=== PATIENT | female | born 1990 | race African-American/Black ===

== ENCOUNTER 2022-02-03 05:21 | Inpatient (IN) | payer OTHER ==
[2022-02-03] VITALS (29 sets, daily range): BP systolic 93–185; BP diastolic 52–88
[~2022-02-03] VITALS: Ht 160 cm; Wt 64.3 kg
[2022-02-03] MEDS ORDERED: D5 LR IV SOLUTION 1,000 ML IV SCH (06:15)
[2022-02-03] MEDS ORDERED: LIDOCAINE/EPI 2% 1:200,00 (XYLOCAINE) 10 ML VIAL INJ PRN (06:15)
[2022-02-03] MEDS ORDERED: MINERAL OIL 30 ML TOP PRN (06:15)
[2022-02-03] MEDS ORDERED: CATHETER FLUSH 10 ML SYR IV PRN (06:15)
--- NOTE | 2022-02-03 06:28 | History & Physical-OB ---
OB - Chief Complaint & HPI Date/Time Date of Admission: Date of Admission: Feb 03, 2022 at 06:03 Date seen by a Provider: Feb 03, 2022 Time Seen by a Provider: 06:30 Chief Complaint/History OB-Reason for Admission/Chief: Induction of Labor Hx : 3 Hx Para: 2 Expected Date of Delivery: Jan 30, 2022 Gestational Age in Weeks: 40 Gestational Age in Days: 4 Indication for induction: post dates Admission Nurse Assessment Rev: Yes History of Labs GBS negative Allergies and Home Medications Allergies Coded Allergies: No Known Drug Allergies (Unverified , 02/03/22) Patient Home Medication List Home Medication List Reviewed: Yes OB - History Hx of Present Care: Yes Ultrasounds: Normal mid trimester US Obstetrical Complications: None Medical Complications: None Patient Past Medical History no chronic medical problems OB - Admission Exam Physical Exam HEENT: Moist Membranes Heart: Rhythm Normal Lungs: Clear Abdomen: Gravid Cervical Dilatation: 2cm Effacement: 75% Station: -3 Membranes: Intact Heart Rate: 140's Accelerations: Accelerations Present Contractions on Admission: >10 Minutes Apart Intensity: Mild Barba Scoring Tool (Modified) Dilation (cm): 1-2cm (1) Effacement (%): 51-79% (2) Descent/Station: -3 (0) Cervix Consistency: Medium(1) Cervix Position: Middle/Mid-Position (1) Add 1 point for: Each previous vaginal delivery (1) Barba Score: 7 OB - Assessment/Plan/Diagnosis Assessment Assessment: induction of labor Admission Dx 1. IUP at 40w4d gestation Admission Status: Inpatient Order (span 2 midnights) Reason for Inpatient Admission: Induction of labor Plan Plan: Induction Induction Method: AROM Other Plan -pitocin if necessary SHAKIRA HOLDER MD Feb 03, 2022 06:28
[2022-02-03 06:39] LABS: BASOPHILS # (AUTO) 0.1 10^3/uL (0.0-0.1); BASOPHILS % (AUTO) 1 % (0-10); EOSINOPHILS # (AUTO) 0.2 10^3/uL (0.0-0.3); EOSINOPHILS % (AUTO) 2 % (0-10); HEMATOCRIT 42 % (35-52); HEMOGLOBIN 14.2 g/dL (11.5-16.0); LYMPHOCYTES # (AUTO) 1.6 10^3/uL (1.0-4.0); LYMPHOCYTES % (AUTO) 17 % (12-44); MEAN CORPUSCULAR HEMOGLOBIN 29 pg (25-34); MEAN CORPUSCULAR HGB CONC 34 g/dL (32-36); MEAN CORPUSCULAR VOLUME 85 fL (80-99); MONOCYTES # (AUTO) 0.7 10^3/uL (0.0-1.0); MONOCYTES % (AUTO) 8 % (0-12); NEUTROPHILS # (AUTO) 6.3 10^3/uL (1.8-7.8); NEUTROPHILS % (AUTO) 67 % (42-75); PLATELET COUNT 189 10^3/uL (130-400); WHITE BLOOD COUNT 9.5 10^3/uL (4.3-11.0)
[2022-02-03 07:41] LABS: BILIRUBIN,URINE NEGATIVE (NEGATIVE); CLARITY,URINE CLEAR; COLOR,URINE YELLOW; GLUCOSE, URINE (UA) NEGATIVE (NEGATIVE); KETONES,URINE NEGATIVE (NEGATIVE); LEUKOCYTE ESTERASE ,URINE 1+ (NEGATIVE); NITRITE,URINE NEGATIVE (NEGATIVE); PH,URINE 6.5 (5-9); PROTEIN,URINE NEGATIVE (NEGATIVE)
[2022-02-03] MEDS ORDERED: OXYTOCIN PRE-MIX DRIP 500 ML IV ONE (07:56)
[2022-02-03 07:57] LABS: BACTERIA,URINE TRACE /HPF; RBC,URINE RARE /HPF
[2022-02-03] MEDS ORDERED: OXYTOCIN PRE-MIX DRIP 500 ML IV SCH ×2 (08:00→12:15)
[2022-02-03] MEDS ORDERED: MEPIVACAINE (CARBOCAINE) 2% 50 ML VIAL ONE (10:30)
--- NOTE | 2022-02-03 12:01 | OB Labor & Delivery Record ---
L&D History Date of Service Date of Service: Feb 03, 2022 History Expected Date of Delivery: Jan 30, 2022 Gestational Age in Weeks: 40 Hx : 3 Hx Para: 3 Complications Events: Routine care Operative Indications (Cesarea: N/A-Vaginal Delivery Intrapartal Events: Extnded Bradycardia (at delivery) L&D Stage1 Stage One Onset of Labor - Date: Feb 03, 2022 Onset of Labor - Time: 06:39 Monitors and Tracing Monitor Mode: Internal Heart Rate: 130 Monitor Accelerations: Uniform Monitor Decelerations: Variable Station: 0 Halfway Variability: Average (6-10) Short Term Variability: Present Presentation: Vertex Vital Signs VS - Last 72 Hours, by Label 02/03/22 02/03/22 02/03/22 02/03/22 06:35 06:37 07:10 07:25 Temp 36.6 36.6 36.8 Pulse 89 89 82 77 Resp 18 18 18 18 B/P (MAP) 110/64 (79) 103/63 (76) 108/62 (77) Pulse Ox 98 98 O2 Delivery Room Air Room Air 02/03/22 02/03/22 02/03/22 02/03/22 07:45 08:00 08:15 08:30 Pulse 78 79 81 85 Resp 18 18 18 18 B/P (MAP) 105/63 (77) 106/57 (73) 108/68 (81) 152/60 (90) 02/03/22 02/03/22 02/03/22 02/03/22 08:45 09:00 09:15 09:30 Pulse 78 77 74 72 Resp 18 18 18 18 B/P (MAP) 110/64 (79) 113/67 (82) 100/62 (75) 103/55 (71) 02/03/22 02/03/22 02/03/22 09:45 10:00 10:15 Pulse 86 78 74 Resp 18 18 18 B/P (MAP) 103/57 (72) 103/57 (72) 112/66 (81) Signs of Distress by FHT Signs of Distress no Rupture of Membranes Spontaneous Ruture of Membrane: No Amniotic Membrane Rupture Time: 0639 Amniotic Membrane Fluid Desc.: Clear L&D Stage2 Stage Two Stage II Date: Feb 03, 2022 Stage II Time: 11:49 Monitors and Tracing Monitor Mode: Internal Heart Rate: 130 Monitor Accelerations: Uniform Monitor Decelerations: Variable Halfway Variability: Average (6-10) Position: Left Occiput Anterior Presentation: Vertex Signs of Distress by FHT Signs of Distress no Cord Descript/Complications Cord Vessel Description: 3 Vessels Delivery Type Delivery Method: Spontaneous Vaginal Anterior Shoulder: Left Episiotomy/Perineal Laceration Laceraction(s)/Extensions: No Condition of Delivery 1 minute Comment: 8 5 minute Comment: 9 Condition of Infant Condition of : Living Exam: No Observed Abnormalities Resuscitation Resuscitation: N/A - Spontaneous Resp L&D Stage3 Stage Three Stage III Date: Feb 03, 2022 Stage III Time: 11:54 Pictocin Pitocin Administration mu/min: 8 Pitocin ml/hr: 8 Pitocin Administration Comment: pitocin increased Placenta Delivery Placenta Delivery: Spontaneous Delivery Summary Summary Estimated blood loss (mL): 200 Condition of Delivery Examined: Cervix Examined Post Hemorrhage: No Intervention Required none SHAKIRA HOLDER MD Feb 03, 2022 12:01
[2022-02-03] MEDS ORDERED: NALOXONE 0.4 MG/ML 1 ML (NARCAN) VIAL IV PRN (12:15)
[2022-02-03] MEDS ORDERED: MEASLES,MUMPS,RUBELLA 1 EA INJ SQ ONE (12:15)
[2022-02-03] MEDS ORDERED: BENZOCAINE/MENTHOL (DERMOPLAST) 56 ML CAN TP PRN (12:15)
[2022-02-03] MEDS ORDERED: WITCH HAZEL(TUCKS) 40 EA JAR TOP PRN (12:15)
[2022-02-03] MEDS ORDERED: TETANUS,DIPTH,PERTUSS P/F (BOOSTRIX) 0.5 ML VIAL IM ONE (12:15)
[2022-02-03] MEDS ORDERED: CATHETER FLUSH 10 ML SYR IV SCH (14:00)
[2022-02-03] MEDS: ACETAMINOPHEN 500 MG TAB (TYLENOL) PO SCH (18:39)
[2022-02-03] MEDS: IBUPROFEN 600 MG (MOTRIN) TAB PO SCH (18:39)
[2022-02-03] MEDS: DOCUSATE SODIUM 100 MG (COLACE) CAP PO SCH (20:42)
[2022-02-04 01:05] VITALS: BP 108/57
[2022-02-04] MEDS: IBUPROFEN 600 MG (MOTRIN) TAB PO SCH ×2 (01:05→08:43)
[2022-02-04] MEDS: ACETAMINOPHEN 500 MG TAB (TYLENOL) PO SCH ×3 (01:05→14:20)
[2022-02-04 04:05] VITALS: BP 105/55
[2022-02-04 06:05] LABS: BASOPHILS # (AUTO) 0.1 10^3/uL (0.0-0.1); BASOPHILS % (AUTO) 0 % (0-10); EOSINOPHILS # (AUTO) 0.2 10^3/uL (0.0-0.3); EOSINOPHILS % (AUTO) 2 % (0-10); HEMATOCRIT 39 % (35-52); HEMOGLOBIN 13.2 g/dL (11.5-16.0); LYMPHOCYTES # (AUTO) 1.9 10^3/uL (1.0-4.0); LYMPHOCYTES % (AUTO) 15 % (12-44); MEAN CORPUSCULAR HEMOGLOBIN 29 pg (25-34); MEAN CORPUSCULAR HGB CONC 34 g/dL (32-36); MEAN CORPUSCULAR VOLUME 87 fL (80-99); MEAN PLATELET VOLUME 11.4 fL (9.0-12.2); MONOCYTES # (AUTO) 0.9 10^3/uL (0.0-1.0); MONOCYTES % (AUTO) 8 % (0-12); NEUTROPHILS # (AUTO) 8.8 10^3/uL (1.8-7.8); NEUTROPHILS % (AUTO) 72 % (42-75); PLATELET COUNT 197 10^3/uL (130-400); WHITE BLOOD COUNT 12.3 10^3/uL (4.3-11.0)
--- NOTE | 2022-02-04 07:51 | Discharge Summary ---
Diagnosis/Chief Complaint Date of Admission Feb 03, 2022 at 06:03 Date of Discharge February 04, 2022 Admission Diagnosis Admission Diagnosis 1. Intrauterine at 40 weeks 4 days gestation Discharge Diagnosis 1. Intrauterine at 40 weeks 4 days gestation Chief Complaint/HPI Chief Complaint/HPI 31-year-old 3 now term 3 who initially presented to labor and delivery during the morning of February 03 for induction of labor. She was noted to be at 40 weeks 4 days gestation. She had occasional contraction. Her EDC was noted to be January 30, 2022. Her GBS status performed through [facility] at 36 weeks was negative. Discharge Summary-OBS Procedures 1. Spontaneous vaginal delivery Discharge Physical Examination Allergies: Coded Allergies: No Known Drug Allergies (Unverified , 02/03/22) Vitals & I&Os Intake and Output 02/04/22 00:00 Intake Total 1725 ml Balance 1725 ml Vital Sign - Last 12Hours Date Time Temp Pulse Resp B/P (MAP) Pulse Ox O2 Delivery O2 Flow Rate FiO2 02/04/22 04:05 36.1 73 18 105/55 (72) 97 Room Air General Appearance: No Acute Distress Respiratory: Clear to Auscultation Cardiovascular: Regular Rate Abdominal: Soft (with uterus firm) Hospital Course patient was admitted during the morning of February 03, 2022 for induction of labor. She underwent amniotomy with placement of scalp electrode. At that time fluid was noted to be clear. She eventually required low-dose Pitocin augmentation. She had occasional variable decels during the course of labor. Ultimately she went on to completion and delivered a term viable female. She had not received any epidural or pain medications during labor. following delivery she underwent routine care orders. Her hemoglobin in the morning of February 04 was 13.2 compared to admission of 14.2. She had tolerated regular diet. She was ambulatory and had no complaints of shortness of breath or leg pain. She was ready for dismissal during the afternoon of February 04, 2022. Labs Laboratory Tests 02/04/22 05:50: White Blood Count 12.3H, Red Blood Count 4.49, Hemoglobin 13.2, Hematocrit 39, Mean Corpuscular Volume 87, Mean Corpuscular Hemoglobin 29, Mean Corpuscular Hemoglobin Concent 34, Red Cell Distribution Width 13.2, Platelet Count 197, Mean Platelet Volume 11.4, Immature Granulocyte % (Auto) 4, Neutrophils (%) (Auto) 72, Lymphocytes (%) (Auto) 15, Monocytes (%) (Auto) 8, Eosinophils (%) (Auto) 2, Basophils (%) (Auto) 0, Neutrophils # (Auto) 8.8H, Lymphocytes # (Auto) 1.9, Monocytes # (Auto) 0.9, Eosinophils # (Auto) 0.2, Basophils # (Auto) 0.1, Immature Granulocyte # (Auto) 0.4H Discharge Instructions to patient/family Please see electronic discharge instructions given to patient. Discharge Medications Reviewed and agree with Discharge Medication list on patient's Discharge Instruction sheet SHAKIRA HOLDER MD Feb 04, 2022 07:51
--- NOTE | 2022-02-04 07:54 | Discharge Inst-Women's Service ---
Discharge Inst-Women's Serv Depart Medication/Instructions New, Converted or Re-Newed RX: Other Instructions May take [id number] ibuprofen 200 mg and may take 2 or 3 every 6 hours if needed for cramps. Problems Reviewed?: Yes Consults/Follow Up Additional Follow Up: Yes (Dr Holder at [facility] in 6 weeks) Activity Driving Instructions: No Driving for 1 Week Nothing Inside Vagina: No Warm [place] (for 6 weeks) Diet Discharge Diet: Regular Diet Return to The Hospital For: as below Symptoms to Report to : Bleeding Excessive, Fever Over 101 Degrees F, Vaginal Discharge Foul For Any Problems or Questions: Contact Your Physician SHAKIRA HOLDER MD Feb 04, 2022 07:54
[2022-02-04] MEDS: DOCUSATE SODIUM 100 MG (COLACE) CAP PO SCH (08:43)
[2022-02-04 08:45] VITALS: BP 99/59
[2022-02-04 12:30] VITALS: BP 98/56
[2022-02-04] MEDS ORDERED: IBUPROFEN 600 MG (MOTRIN) TAB PO SCH (14:00)
[2022-02-04 15:05] VITALS: BP 98/56
== END 2022-02-04 15:05 | disposition home or self-care (01) | DRG 807 ==
LOC: LDRP 06:03
PROVIDERS: ADMIT Family Medicine; ATTEND Family Medicine
PROC: 10E0XZZ Delivery of Products of Conception, External Approach (ICD-10-PCS; principal; 2022-02-03)
PROC: 10907ZC Drainage of Amniotic Fluid, Therapeutic from Products of Conception, Via Natural or Artificial Opening (ICD-10-PCS; 2022-02-03)
DX: O48.0 Post-term pregnancy (principal); Z37.0 Single live birth; Z3A.40 40 weeks gestation of pregnancy; O76 Abnormality in fetal heart rate and rhythm complicating labor and delivery
CPT/HCPCS: 36415; 81000; 85025; 86850; 86900; 86901

== ENCOUNTER 2023-02-11 12:27 | Inpatient (IN) | payer SELFPAY ==
[~2023-02-11] VITALS: Ht 154.9 cm; Wt 72.8 kg
--- NOTE | 2023-02-11 14:28 | Diagnostic Imaging Report ---
INDICATION: monitoring, evaluate growth. TECHNIQUE: Multiple real-time grayscale images were obtained over the gravid uterus. COMPARISON: None FINDINGS: There is a single live fetus in a cephalic presentation. heart rate was recorded at 139 bpm. Placenta is posterior. No previa is detected. Amniotic fluid index is 12.2 cm. kidneys, bladder and stomach are unremarkable. brain is unremarkable. There is a four-chamber heart. There is a three-vessel cord. Cord insertion is somewhat limited in evaluation due to age. spine is unremarkable. Biometrical measurements are as follows: Biparietal 9.06 cm, age 36 weeks 6 days. Head circumference 34.12 cm, age 39 weeks 3 days. Abdominal circumference 34.50 cm, age 38 weeks 3 days. Femur length 7.43 cm, age 38 weeks 1 days. Sonographic estimate age: 38 weeks 2 days. Sonographic estimated date of delivery: 02/23/2023. Estimated Weight: 3426 gm (+/- 500 gm). LMP percentile: 62%. heart rate: 139 beats per minute. number: 1 of 1. IMPRESSION: Single live IUP measuring 38 weeks 2 days gestational age with estimated date of confinement sonographically of 02/23/2023. Dictated by: Dictated on workstation # [id number]
[2023-02-11] MEDS ORDERED: LACTATED RINGERS 1,000 ML IV ONE (15:24)
[2023-02-11] MEDS ORDERED: AMPICILLIN FOR IV USE 2,000 MG in NS (IVPB) 50 ML IV SCH (17:09)
[2023-02-11] MEDS ORDERED: MINERAL OIL 30 ML UDC TOP PRN (17:15)
[2023-02-11] MEDS ORDERED: WATER (STERILE) FOR INJECTION 20 ML ONE (17:20)
[2023-02-11] MEDS ORDERED: D5 LR IV SOLUTION 1,000 ML IV ONE (17:20)
[2023-02-11] MEDS ORDERED: AMPICILLIN 2,000 MG/14.8 ML (IV USE) ONE (17:20)
[2023-02-11] MEDS: D5 LR IV SOLUTION 1,000 ML IV SCH (17:24)
[2023-02-11] MEDS ORDERED: LIDOCAINE 1% INJ 10 ML VIAL INJ PRN (17:45)
[2023-02-11 17:58] LABS: BASOPHILS % (AUTO) 0 % (0-10); EOSINOPHILS # (AUTO) 0.1 10^3/uL (0.0-0.3); EOSINOPHILS % (AUTO) 1 % (0-10); HEMATOCRIT 38 % (35-52); HEMOGLOBIN 13.1 g/dL (11.5-16.0); LYMPHOCYTES # (AUTO) 1.5 10^3/uL (1.0-4.0); LYMPHOCYTES % (AUTO) 17 % (12-44); MEAN CORPUSCULAR HEMOGLOBIN 27 pg (25-34); MEAN CORPUSCULAR HGB CONC 35 g/dL (32-36); MEAN CORPUSCULAR VOLUME 77 fL (80-99); MONOCYTES # (AUTO) 0.6 10^3/uL (0.0-1.0); MONOCYTES % (AUTO) 6 % (0-12); NEUTROPHILS # (AUTO) 6.7 10^3/uL (1.8-7.8); NEUTROPHILS % (AUTO) 75 % (42-75); PLATELET COUNT 157 10^3/uL (130-400); WHITE BLOOD COUNT 8.9 10^3/uL (4.3-11.0)
[2023-02-11 18:11] VITALS: BP 112/58
[2023-02-11 18:12] VITALS: BP 112/58
[2023-02-11 20:33] VITALS: BP 120/63
[2023-02-11] MEDS: CATHETER FLUSH 10 ML SYR IV SCH (22:00)
[2023-02-11] MEDS: AMPICILLIN FOR IV USE 1,000 MG in NS (IVPB) 50 ML IV SCH (22:22)
[2023-02-11 23:37] VITALS: BP 109/62
[2023-02-12] VITALS (15 sets, daily range): BP systolic 98–130; BP diastolic 52–79
[2023-02-12] MEDS: AMPICILLIN FOR IV USE 1,000 MG in NS (IVPB) 50 ML IV SCH ×3 (02:08→10:42)
[2023-02-12] MEDS: D5 LR IV SOLUTION 1,000 ML IV SCH ×2 (02:10→10:42)
[2023-02-12] MEDS: CATHETER FLUSH 10 ML SYR IV SCH (05:20)
[2023-02-12] MEDS ORDERED: OXYTOCIN PRE-MIX DRIP 500 ML IV ONE (10:41)
--- NOTE | 2023-02-12 12:57 | Labor Progress Note ---
Labor Progress Note Labor Progress Note Date Seen by Provider: Feb 12, 2023 Time Seen by Provider: 13:35 Subjective: Patient feeling more pressure and having the urge to push. Called to room to check patient Objective: /- Clear bloody fluid on SVE Assessment/Plan: Aniceto Peres is a (30 /Para 4 / 3,Gestational Age (wks)38 here for active labor CEFM/TOCO Continue pitocin augmentation of labor Anesthesia: None GBS Unknown, on ampicillin Minimal care GDM with blood sugar >200 at GTT Anticipate vaginal delivery. Vitals - Labs Vital Signs - I&O Vital Signs Date Time Temp Pulse Resp B/P (MAP) Pulse Ox O2 Delivery O2 Flow Rate FiO2 02/12/23 07:52 36.7 64 18 116/58 (77) Room Air 02/12/23 02:32 36.6 67 18 108/54 (72) Room Air 02/11/23 23:37 37.1 71 18 109/62 (78) Room Air 02/11/23 20:33 36.8 71 18 120/63 (82) Room Air 02/11/23 18:12 36.7 72 18 112/58 95 Room Air 02/11/23 18:11 64 18 112/58 (76) 95 Room Air I & O 02/12/23 07:00 Intake Total 2100 ml Balance 2100 ml Labs Laboratory Tests 02/11/23 15:47: Glucometer 120H 02/11/23 17:45: White Blood Count 8.9, Red Blood Count 4.90, Hemoglobin 13.1, Hematocrit 38, Mean Corpuscular Volume 77L, Mean Corpuscular Hemoglobin 27, Mean Corpuscular Hemoglobin Concent 35, Red Cell Distribution Width 12.8, Platelet Count 157, Mean Platelet Volume 11.0, Immature Granulocyte % (Auto) 1, Neutrophils (%) (Auto) 75, Lymphocytes (%) (Auto) 17, Monocytes (%) (Auto) 6, Eosinophils (%) (Auto) 1, Basophils (%) (Auto) 0, Neutrophils # (Auto) 6.7, Lymphocytes # (Auto) 1.5, Monocytes # (Auto) 0.6, Eosinophils # (Auto) 0.1, Basophils # (Auto) 0.0, Immature Granulocyte # (Auto) 0.1, Syphilis Total Antibody Negative TOM VALENZUELA MD Feb 12, 2023 12:57
--- NOTE | 2023-02-12 14:03 | History & Physical-OB ---
OB - Chief Complaint & HPI Date/Time Date of Admission: Date of Admission: Feb 11, 2023 at 17:07 Date seen by a Provider: Feb 12, 2023 Time Seen by a Provider: 08:30 Chief Complaint/History OB-Reason for Admission/Chief: Onset of Labor Hx : 4 Hx Para: 3 Expected Date of Delivery: Feb 23, 2023 Gestational Age in Weeks: 38 Gestational Age in Days: 2 History of Labs Blood type B+, antibody screen negative HIV, Hep B, RPR NR Rubella equivicable GC/Chl negative Pap - ASCUS, HPV+ 1h GTT 247 GBS unknown Allergies and Home Medications Allergies Coded Allergies: No Known Drug Allergies (Unverified , 02/03/22) Patient Home Medication List Home Medication List Reviewed: Yes No Active Prescriptions or Reported Meds OB - History Hx of Present Care: Yes Ultrasounds: Normal mid trimester US Obstetrical Complications: Other (Limited prental care; abnormal GTT) Medical Complications: None Information Induced Hypertension: No Maternal Gestational Diabetes: Yes (1h GTT 247, limited follow-up) Hemorrhage: No Obstetrical History Hx : 4 Hx Para: 3 Hx Total # of Abortions (Spona: 0 Delivery History Hx Dystocia: No Hx Forceps Assisted Delivery: No Hx Vacuum Extraction Assisted: No Hx Placenta Abnormality: No Hx Distress: No Hx Large For Gestational Age I: No Hx Small for Gestational Age I: No Hx Section: No Hx Vaginal Delivery Post C-Sec: No Hx Blood Disorders: No Adverse Rxn to Tranfusion: No Patient Past Medical History denies Social History/Family History Alcohol Use: Denies Use Recreational Drug Use: No Immunizations Influenza Vaccine Up-to-Date: No; Not Current Rubella: not immune RPR/VDRL: Negative GBS Status: Unknown HBsAG: Negative OB - Admission Exam Physical Exam Vitals: Vital Signs 02/11/23 02/12/23 18:12 07:52 Temp 36.7 Pulse 64 Resp 18 B/P (MAP) 116/58 (77) Pulse Ox 95 O2 Delivery Room Air Heart: Rhythm Normal Lungs: Clear Abdomen: Gravid Cervical Dilatation: 6cm Effacement: 100% Station: -1 Membranes: Ruptured (AROM) Amniotic Fluid: Clear Heart Rate: 140's Accelerations: Accelerations Present Decelerations: No Decelerations Short Term Variability: Present Laborer General Variability: Average (6-25) Contractions on Admission: < 5 Minutes Apart Intensity: Moderate Labs Laboratory Tests Test 02/11/23 15:47 02/11/23 17:45 Range/Units Glucometer 120 H 70-110 MG/DL White Blood Count 8.9 4.3-11.0 10^3/uL Red Blood Count 4.90 3.80-5.11 10^6/uL Hemoglobin 13.1 11.5-16.0 g/dL Hematocrit 38 35-52 % Mean Corpuscular Volume 77 L 80-99 fL Mean Corpuscular Hemoglobin 27 25-34 pg Mean Corpuscular Hemoglobin Concent 35 32-36 g/dL Red Cell Distribution Width 12.8 10.0-14.5 % Platelet Count 157 130-400 10^3/uL Mean Platelet Volume 11.0 9.0-12.2 fL Immature Granulocyte % (Auto) 1 % Neutrophils (%) (Auto) 75 42-75 % Lymphocytes (%) (Auto) 17 12-44 % Monocytes (%) (Auto) 6 0-12 % Eosinophils (%) (Auto) 1 0-10 % Basophils (%) (Auto) 0 0-10 % Neutrophils # (Auto) 6.7 1.8-7.8 10^3/uL Lymphocytes # (Auto) 1.5 1.0-4.0 10^3/uL Monocytes # (Auto) 0.6 0.0-1.0 10^3/uL Eosinophils # (Auto) 0.1 0.0-0.3 10^3/uL Basophils # (Auto) 0.0 0.0-0.1 10^3/uL Immature Granulocyte # (Auto) 0.1 0.0-0.1 10^3/uL Syphilis Total Antibody Negative Negative OB - Assessment/Plan/Diagnosis Assessment Assessment: active labor Admission Dx Active labor at 38wk Limited care Unknown GBS Admission Status: Inpatient Order (span 2 midnights) Reason for Inpatient Admission: labor and delivery Plan Plan: Expectant Management Other Plan augment labor with ROM Unknown GBS, treat with ampicillin TRINO PEPE DO Feb 12, 2023 14:03
--- NOTE | 2023-02-12 14:07 | OB Labor & Delivery Record ---
Vag Delivery Note Vag Delivery Note Date of Delivery: 02/12/23 Preoperative Diagnosis: Aniceto Peres is a (30 /Para 4 / 3,Gestational Age (wks)38with spontaneous labor. Postoperative Diagnosis: Same Surgeon: TRINO PEPE Anesthesia: none Delivery Type: spontaenous vaginal delivery @1352 Findings: Viable male infant, apgars 8/9, weight 6#15 (3135g) Lacerations: none Intact placenta with 3 vessel cord. No shoulder dystocia. Leg cord noted at delivery. Estimated Blood Loss: 75 ml Complications: None Condition: Stable Description of Procedure: The patient is a 32 year old female who presented with contractions and cervical change. She was admitted and informed consent was obtained. Her labor course was remarkable for labor augmentation with ROM at 6cm with clear fluid.. She progressed to complete dilatation and began to push. She was then set up for delivery. The 's head was delivered atraumatically in the LIN position. The shoulders and remainder of the 's body were then delivered without difficulty. Upon delivery, the was vigorous and placed on maternal chest and the mouth and nares were bulb suctioned. After a delay cord was doubly clamped and cut and the infant remained on maternal chest. An intact placenta with 3-vessel cord delivered via [place] and there was found to be minimal bleeding.~ Vigorous fundal massage was performed and the fundus was found to be firm. IV oxytocin was given. Examination of the vagina and perineum revealed no lacerations . Following the repair, sponge, instrument and needle counts were correct. Mom and baby were both in stable condition in the labor suite. Vitals - Labs Vital Signs - I&O Vital Signs Date Time Temp Pulse Resp B/P (MAP) Pulse Ox O2 Delivery O2 Flow Rate FiO2 02/12/23 07:52 36.7 64 18 116/58 (77) Room Air 02/12/23 02:32 36.6 67 18 108/54 (72) Room Air 02/11/23 23:37 37.1 71 18 109/62 (78) Room Air 02/11/23 20:33 36.8 71 18 120/63 (82) Room Air 02/11/23 18:12 36.7 72 18 112/58 95 Room Air 02/11/23 18:11 64 18 112/58 (76) 95 Room Air I & O 02/12/23 07:00 Intake Total 2100 ml Balance 2100 ml Labs Laboratory Tests 02/11/23 15:47: Glucometer 120H 02/11/23 17:45: White Blood Count 8.9, Red Blood Count 4.90, Hemoglobin 13.1, Hematocrit 38, Mean Corpuscular Volume 77L, Mean Corpuscular Hemoglobin 27, Mean Corpuscular Hemoglobin Concent 35, Red Cell Distribution Width 12.8, Platelet Count 157, Mean Platelet Volume 11.0, Immature Granulocyte % (Auto) 1, Neutrophils (%) (Auto) 75, Lymphocytes (%) (Auto) 17, Monocytes (%) (Auto) 6, Eosinophils (%) (Auto) 1, Basophils (%) (Auto) 0, Neutrophils # (Auto) 6.7, Lymphocytes # (Auto) 1.5, Monocytes # (Auto) 0.6, Eosinophils # (Auto) 0.1, Basophils # (Auto) 0.0, Immature Granulocyte # (Auto) 0.1, Syphilis Total Antibody Negative TRINO PEPE DO Feb 12, 2023 14:07
[2023-02-12] MEDS ORDERED: WITCH HAZEL(TUCKS) 40 EA JAR TOP PRN (14:15)
[2023-02-12] MEDS ORDERED: BENZOCAINE/MENTHOL (DERMOPLAST) 56 ML CAN TP PRN (14:15)
[2023-02-12] MEDS ORDERED: OXYTOCIN PRE-MIX DRIP 500 ML IV SCH (14:15)
[2023-02-12] MEDS ORDERED: TETANUS,DIPTH,PERTUSS P/F (BOOSTRIX) 0.5 ML VIAL IM ONE (14:15)
[2023-02-12] MEDS ORDERED: MEASLES,MUMPS,RUBELLA 1 EA INJ SQ ONE (14:15)
[2023-02-12] MEDS: IBUPROFEN 600 MG (MOTRIN) TAB PO SCH ×2 (14:56→20:55)
[2023-02-12] MEDS: DOCUSATE SODIUM 100 MG (COLACE) CAP PO SCH (20:55)
[2023-02-12] MEDS ORDERED: CATHETER FLUSH 10 ML SYR IV SCH (22:00)
[2023-02-13 01:00] VITALS: BP 91/51
[2023-02-13] MEDS: IBUPROFEN 600 MG (MOTRIN) TAB PO SCH ×3 (03:24→15:10)
[2023-02-13 05:55] VITALS: BP 97/54
[2023-02-13 06:05] LABS: BASOPHILS % (AUTO) 0 % (0-10); EOSINOPHILS # (AUTO) 0.1 10^3/uL (0.0-0.3); EOSINOPHILS % (AUTO) 1 % (0-10); HEMATOCRIT 38 % (35-52); HEMOGLOBIN 12.8 g/dL (11.5-16.0); LYMPHOCYTES # (AUTO) 1.4 10^3/uL (1.0-4.0); LYMPHOCYTES % (AUTO) 13 % (12-44); MEAN CORPUSCULAR HEMOGLOBIN 27 pg (25-34); MEAN CORPUSCULAR HGB CONC 34 g/dL (32-36); MEAN CORPUSCULAR VOLUME 79 fL (80-99); MEAN PLATELET VOLUME 11.2 fL (9.0-12.2); MONOCYTES # (AUTO) 0.6 10^3/uL (0.0-1.0); MONOCYTES % (AUTO) 6 % (0-12); NEUTROPHILS % (AUTO) 79 % (42-75); PLATELET COUNT 153 10^3/uL (130-400); WHITE BLOOD COUNT 10.2 10^3/uL (4.3-11.0)
[2023-02-13] MEDS: DOCUSATE SODIUM 100 MG (COLACE) CAP PO SCH (08:41)
[2023-02-13 08:50] VITALS: BP 111/67
--- NOTE | 2023-02-13 09:23 | Short Stay Summary ---
Discharge Summary Hospital Course Final Diagnosis: see Hospital Course Hospital Course Date of Admission: Feb 11, 2023 at 17:07 Admission Diagnosis : 1. 38wk 4d spontaneous onset of labor 2. limited care 3. GBS unknown 4. abnormal 1h GTT 5. abnormal pap - ASCUS, HPV positive Family Physician/Provider: Brandie,Local Physician Date of Discharge: 02/13/23 Discharge Diagnosis: 1. 38wk 4d spontaneous onset of labor s/p 02/12/23 2. limited care 3. GBS unknown - fully treated antibiotic prophylaxis 4. abnormal 1h GTT 5. abnormal pap - ASCUS, HPV positive Hospital Course: Uncomplicated delivery on 02/12/23. Routine care. Follow up with Dr. Crooks in 6wk for visit and colposcopy. Needs screening for diabetes. Labs and Pending Lab Test: Laboratory Tests 02/13/23 05:46: White Blood Count 10.2, Red Blood Count 4.77, Hemoglobin 12.8, Hematocrit 38, Mean Corpuscular Volume 79L, Mean Corpuscular Hemoglobin 27, Mean Corpuscular Hemoglobin Concent 34, Red Cell Distribution Width 12.9, Platelet Count 153, Mean Platelet Volume 11.2, Immature Granulocyte % (Auto) 1, Neutrophils (%) (Auto) 79H, Lymphocytes (%) (Auto) 13, Monocytes (%) (Auto) 6, Eosinophils (%) (Auto) 1, Basophils (%) (Auto) 0, Neutrophils # (Auto) 8.0H, Lymphocytes # (A uto) 1.4, Monocytes # (Auto) 0.6, Eosinophils # (Auto) 0.1, Basophils # (Auto) 0.0, Immature Granulocyte # (Auto) 0.1 Home Meds Active No Active Prescriptions or Reported Medications Assessment/Pt Instructions Follow up with Dr. Crooks in 6wk for visit and colposcopy. Needs screening for diabetes. Discharge Instructions Discharge Diet: No Restrictions Discharge Physical Examination General Appearance: Alert, Oriented X3, Cooperative Psych/Mental Status: Mental Status NL, Mood NL Allergies: Coded Allergies: No Known Drug Allergies (Unverified , 02/03/22) Discharge Summary Date of Admission Feb 11, 2023 at 17:07 Date of Discharge TRINO PEPE DO Feb 13, 2023 09:23
[2023-02-13 14:00] VITALS: BP 102/58
[2023-02-13 17:25] VITALS: BP 102/58
== END 2023-02-13 17:25 | disposition home or self-care (01) | DRG 807 ==
LOC: WSo 12:27 → LDRP 12:27 → WSo 17:07 → LDRP 17:07
PROVIDERS: ADMIT Family Medicine; ATTEND Family Medicine
PROC: 10E0XZZ Delivery of Products of Conception, External Approach (ICD-10-PCS; principal; 2023-02-11)
PROC: 10907ZC Drainage of Amniotic Fluid, Therapeutic from Products of Conception, Via Natural or Artificial Opening (ICD-10-PCS; 2023-02-11)
DX: O24.429 Gestational diabetes mellitus in childbirth, unspecified control (principal); Z37.0 Single live birth; Z3A.38 38 weeks gestation of pregnancy; R87.810 Cervical high risk human papillomavirus (HPV) DNA test positive
CPT/HCPCS: 36415; 76805; 82947; 85025; 86780; 86850; 86900; 86901; 99212